=== PATIENT | male | born 1940 | race Caucasian/White ===

== ENCOUNTER 2016-12-21 15:07 | Emergency (ER) | payer OTHER ==
[2016-12-21 15:22] VITALS: RESP 16; TEMP 98.1
--- NOTE | 2016-12-21 16:12 | EDPHY ---
H & P Time Seen by Provider: 12/21/16 16:04 HPI/ROS: CHIEF COMPLAINT: Hematuria, rib pain HISTORY OF PRESENT ILLNESS: 76-year-old male presents with a chief complaint of blood in urine. Onset of hematuria 3 days ago, constant since then. 2 weeks ago he had a mechanical fall while hiking down an icy slope. He landed onto his right side and has ongoing right-sided rib and flank pain. He was seen at urgent care earlier today, and was directed to present to the emergency department for further evaluation. No abdominal pain, fever, vomiting, or other associated symptoms. REVIEW OF SYSTEMS: Constitutional: No fever, no chills Eyes: No visual changes ENT: No sore throat Respiratory: No cough, no shortness of breath Cardiac: No chest pain Gastrointestinal: No nausea, no vomiting, no abdominal pain Genitourinary: no dysuria Musculoskeletal: No leg pain or swelling Skin: No rash Neurological: No headache, no numbness, no weakness Psychiatric: No depression Past Medical/Surgical History: Denies Social History: at bedside Smoking Status: Never smoked Physical Exam: General Appearance: Alert, pleasant Eyes: Pupils equal and round, no conjunctival pallor or injection ENT, Mouth: Mucous membranes moist Neck: Normal inspection Respiratory: Lungs are clear to auscultation Cardiovascular: Regular rate and rhythm Gastrointestinal: Abdomen is soft and nontender Back: normal inspection, tender over the right lower ribs, no midline tenderness Neurological: A&O, nonfocal, normal gait Skin: Warm and dry, no rash Extremities: Nontender, no pedal edema Psychiatric: Mood and affect normal Constitutional: Initial Vital Signs Temperature (C) 36.7 C 12/21/16 15:20 Heart Rate 78 12/21/16 15:20 Respiratory Rate 16 12/21/16 15:20 Blood Pressure 156/80 H 12/21/16 15:20 O2 Sat (%) 94 12/21/16 15:20 O2 Delivery Mode Room Air Allergies/Adverse Reactions: No Known Allergies Allergy (Unverified 12/21/16 15:22) Home Medications: Medication Instructions Recorded NK [No Known Home Meds] 12/21/16 Medical Decision Making - Diagnostics Imaging: Discussed imaging studies w/ home sales consultant Radiologist ED Course/Re-evaluation: 76 year old presents with hematuria and ongoing rib pain after a recent fall. Unclear if the hematuria is related to the fall. Given the persistent right rib /flank pain, CT scan is indicated to rule out renal trauma. 17:[address] Zepeda, radiologist. CT shows posterior left bladder mass. Enlarged prostate gland. Right 8th rib subacute fracture. CT results discussed with the patient and his . Hematuria is most likely secondary to the bladder mass. No evidence of severe hemorrhage and no indication for admission. Plan to discharge home in good condition. The patient will follow up with urology this week. Return precautions discussed. The patient is comfortable with this plan. Differential Diagnosis: Differential diagnosis includes but is not limited to renal trauma, kidney stone , urinary tract infection, coagulopathy. - Data Points Laboratory Results: Laboratory Results 12/21/16 16:45 12/21/16 16:45 Medications Given: Discontinued Medications Sodium Chloride (Ns) 1,000 mls @ 0 mls/hr IV EDNOW ONE; Wide Open PRN Reason: Protocol Stop: 12/21/16 16:24 Last Admin: 12/21/16 16:42 Dose: 1,000 mls Departure - Departure Disposition: Home, Routine, Self-Care Clinical Impression: Bladder mass Hematuria Qualifiers: Hematuria type: gross Qualified Code(s): R31.0 - Gross hematuria Condition: Good Instructions: Hematuria (ED) Additional Instructions: 1. Follow up with urology this week. We have referred you to our urologist sales contracts analyst. Call tomorrow to schedule an appointment. 2. Return to the emergency department for inability to urinate, worsening bleeding, abdominal pain, or any concerns. Referrals: GURDEEP MCKENZIE [Other] - As per Instructions Frederic Contreras MD [Medical Doctor] - As per Instructions Report Scribed for: Bianca Moffett Report Scribed by: Ana Maria Jo Date of Report: 12/21/16 Time of Report: 16:12 Physician Review and Approval Statement: 12/21/16 16:11 Portions of this note were transcribed by a medical review coordinator. I personally performed a history, physical exam, medical decision making, and confirmed accuracy of information the transcribed note.
[2016-12-21] MEDS ORDERED: NS 1,000 ML IV ONE (16:23)
[2016-12-21 16:32] LABS: LEUKOCYTE ESTERASE,URINE NEGATIVE (NEGATIVE); NITRITE,URINE NEGATIVE (NEGATIVE)
[2016-12-21 16:33] LABS: COLOR RED
[2016-12-21 16:34] LABS: RBC,URINE 50-182 /hpf (0-3)
[2016-12-21 16:35] LABS: WBC,URINE 0-1 /hpf (0-3)
[2016-12-21 17:04] LABS: % IMMATURE GRANULYOCYTES 0.3 % (0.0-1.1); ABSOLUTE IMMATURE GRANULOCYTES 0.02 10^3/uL (0.00-0.10); ADD DIFF? NO; ADD MORPH? NO; ADD SCAN? NO; ATYPICAL LYMPHOCYTE FLAG 10 (0-99); FRAGMENT RBC FLAG 0 (0-99); HEMATOCRIT 47.3 % (40.0-51.0); LEFT SHIFT FLG 0 (0-99); LIPEMIA HEMOLYSIS FLAG 90 (0-99); MEAN CELL HEMOGLOBIN 28.8 pg (27.9-34.1); MEAN CELL HEMOGLOBIN CONCENTR. 33.8 g/dL (32.4-36.7); MEAN CELL VOLUME 85.1 fL (81.5-99.8); MEAN PLATELET VOLUME 9.6 fL (8.7-11.7); PLATELET CLUMPS FLAG 0 (0-99); PLATELET COUNT 217 10^3/uL (150-400); RED BLOOD CELL COUNT 5.56 10^6/uL (4.40-6.38); RED CELL DISTRIBUTION WIDTH 13.5 % (11.5-15.2)
[2016-12-21 17:05] LABS: ANION GAP 12 mEq/L (8-16); CALCIUM 9.7 mg/dL (8.5-10.4); CARBON DIOXIDE 22 mEq/l (22-31); CHLORIDE 106 mEq/L (97-110); GLOMERULAR FILTRATION RATE > 60; GLUCOSE 93 mg/dL (70-100); POTASSIUM 4.2 mEq/L (3.5-5.2); SODIUM 140 mEq/L (134-144)
[2016-12-21] MEDS ORDERED: IOPAMIDOL (ISOVUE-300) 100 ML BTL ONE (17:18)
[2016-12-21 18:31] VITALS: BP 142/81; PULSE 74; O2SAT 95
== END 2016-12-21 18:31 | disposition home or self-care (01) ==
DX: N32.9 Bladder disorder, unspecified (principal); E86.9 Volume depletion, unspecified
CPT/HCPCS: 74177; 96360; 99285; Q9967

== ENCOUNTER 2018-06-16 18:21 | Inpatient (IN) | payer OTHER ==
--- NOTE | 2018-06-16 19:03 | EDPHY ---
HPI/HX/ROS/PE/MDM Narrative: CHIEF COMPLAINT: "Really dehydrated and weak" HISTORY OF PRESENT ILLNESS: The patient is an 78 y/o male arriving with his family members complaining of dehydration, weakness, and fever for the last 4 days after flying back from [place] on Wednesday. He describes a "light, irritating cough," dysuria, and a fever as high as 102F this morning. His describes him as delirious and took him to his PCP today, who referred him onto the ED. He has not taken any antipyretics. His says, "we've been doing garlic to try to get him to feel well." He also mentions he's had diarrhea for perhaps a year that his doctor does not believe is infectious. He has a history of an "inflamed prostate" that he treats with supplements. No sore throat, chills, chest pain, back pain, shortness of breath, palpitations , abdominal pain, vomiting, headache, lightheadedness. REVIEW OF SYSTEMS: Aside from elements discussed in the HPI, a comprehensive 10-point review of systems was reviewed and is negative. PAST MEDICAL HISTORY: "Inflamed prostate" - herbal supplements SOCIAL HISTORY: Family at bedside. Lives in [place]. PCP: [facility] VITAL SIGNS: Reviewed by me. SpO2 87% on room air, 38.9C. GENERAL: Elderly, thin, resting comfortably in no respiratory distress. HEENT: Atraumatic. Eyes: No icterus, no injection. Left eye enucleated. Mouth: dry mucous membranes. No erythema or lesions. Neck: supple with no adenopathy. LUNGS: Clear to auscultation bilaterally, no wheezes, rhonchi or rales. CARDIAC: Regular rate and rhythm, no rubs, murmurs or gallops. ABDOMEN: Soft, nontender, nondistended, bowel sounds normal. BACK: No CVA tenderness. EXTREMITIES: No trauma. No edema. Range of motion is normal throughout. NEURO: Alert and oriented, grossly nonfocal. SKIN: Hot and dry, no rash. PSYCHIATRIC: Normal mentation, no agitation. Portions of this note were transcribed by a medical parasitologist. I personally performed a history, physical exam, medical decision making, and confirmed accuracy of information the transcribed note. ED Course: This is an ill-appearing 78 y/o male who presents with a 4-day history of weakness, dehydration, cough, and fever following a flight home from [place] on Wednesday. He is hypoxemic and febrile on my assessment. Plan for IV, sepsis labs, UA, EKG, chest x-ray, and symptom management. 1L IV NS, 1000mg PO Tylenol ordered. The 12 lead EKG was interpreted by myself. Sinus mechanism rate 74. See hard copy and/or "tracemaster" electronic copy for interpretation. Chest x-ray: wedged-shaped left upper lobe infiltrate. Suspicion for aspiration pneumonia was raised. 500mg IV azithromycin and 1gm IV Ceftriaxone ordered. D-dimer ordered due to concern for PE given wedge-shaped infiltrate and hypoxemia following travel. Lactate and WBC are normal. 2024: Spoke with hospitalist service. Dr. Blanca accepts admission. Discussed possibility of aspiration. Dr. Mariano will consider broadening patient's antibiotic regiment after his evaluation. D-dimer is elevated. Chest CTA: The negative for pulmonary embolism. Please see the report with respect to thyroid findings. Sepsis Evaluation Note: The patient presents to the ED with potential infection identified as pneumonia. The patient did have evidence of sepsis with temperature greater than 38 degree Celsius, and hypoxemia. Patient did not have evidence of severe sepsis (lactic acid greater than 2, INR greater than 1.5, platelets less than 100,000, bilirubin greater than 2, creatinine greater than 2, systolic blood pressure less than 90 or MAP less than 65, or the need for intubation or positive pressure ventilation). MDM: Differential diagnosis for the patient's cough and fever was considered including but not limited to viral versus bacterial bronchitis, influenza, aspiration pneumonia, community-acquired pneumonia, pneumonia, upper respiratory infection, cardiac causes, bronchospasm, PE. - Data Points Imaging Results: Imaging Impressions Chest X-Ray 06/16/18 18:56 Impression: Diffuse peribronchial thickening with interim development of an anterior left upper lobe infiltrate and a tiny left pleural effusion. Clinical correlation and follow-up to assure resolution are recommended. CT Chest: Impression: 1. There is no CT evidence of pulmonary artery thromboemboli. 2. Left upper lobe interstitial/alveolar infiltrate. Clinical correlation and follow-up to assure resolution recommended. Could this represent an aspiration pneumonia? 3. Small left pleural effusion with bibasilar subsegmental atelectasis. 4. There is a nonspecific inferolateral right middle lobe 6 mm nodule with pleural attachment. Consider follow-up CT reevaluation in 6-12 months. 5. Asymmetric heterogeneous enlargement of the right lobe of the thyroid gland. Consider correlation with serum thyroid function tests and sonography, as clinically directed. 6. Sequela of old granulomatous disease. 7. Minimal LAD coronary artery atherosclerotic calcification. Findings were discussed with Nirmala Eagle MD at 22:05, on 06/16/2018. Dictated By: Umair Elam MD Imaging: Discussed imaging studies w/ fisher scallop Radiologist, I viewed and interpreted images myself Laboratory Results: Laboratory Results 06/16/18 19:05 06/16/18 19:05 06/16/18 06/16/18 06/16/18 19:36 19:31 19:17 WBC RBC Hgb Hct MCV MCH MCHC RDW Plt Count MPV Neut % (Auto) Lymph % (Auto) [place] % (Auto) Eos % (Auto) Baso % (Auto) Nucleat RBC Rel Count Absolute Neuts (auto) Absolute Lymphs (auto) Absolute Monos (auto) Absolute Eos (auto) Absolute Basos (auto) Absolute Nucleated RBC Immature Gran % Immature Gran # PT INR APTT D-Dimer VBG Lactic Acid 1.8 mmol/L mmol/L (0.7-2.1) Sodium Potassium Chloride Carbon Dioxide Anion Gap BUN Creatinine Estimated GFR Glucose Calcium Total Bilirubin POC Troponin I 0.02 ng/mL ng/mL (0.00-0.08) Procalcitonin Nasal Influenza A PCR NEGATIVE FOR FLU A (NEGATIVE) Nasal Influenza B PCR NEGATIVE FOR FLU B (NEGATIVE) 06/16/18 06/16/18 06/16/18 19:05 19:05 19:05 WBC 8.10 10^3/uL 10^3/uL (3.80-9.50) RBC 4.96 10^6/uL 10^6/uL (4.40-6.38) Hgb 14.0 g/dL g/dL (13.7-17.5) Hct 40.8 % % (40.0-51.0) MCV 82.3 fL fL (81.5-99.8) MCH 28.2 pg pg (27.9-34.1) MCHC 34.3 g/dL g/dL (32.4-36.7) RDW 12.9 % % (11.5-15.2) Plt Count 169 10^3/uL 10^3/uL (150-400) MPV 10.2 fL fL (8.7-11.7) Neut % (Auto) 79.0 % H % (39.3-74.2) Lymph % (Auto) 8.8 % L % (15.0-45.0) [place] % (Auto) 11.7 % % (4.5-13.0) Eos % (Auto) 0.0 % L % (0.6-7.6) Baso % (Auto) 0.1 % L % (0.3-1.7) Nucleat RBC Rel Count 0.0 % % (0.0-0.2) Absolute Neuts (auto) 6.40 10^3/uL 10^3/uL (1.70-6.50) Absolute Lymphs (auto) 0.71 10^3/uL L 10^3/uL (1.00-3.00) Absolute Monos (auto) 0.95 10^3/uL H 10^3/uL (0.30-0.80) Absolute Eos (auto) 0.00 10^3/uL L 10^3/uL (0.03-0.40) Absolute Basos (auto) 0.01 10^3/uL L 10^3/uL (0.02-0.10) Absolute Nucleated RBC 0.00 10^3/uL 10^3/uL (0-0.01) Immature Gran % 0.4 % % (0.0-1.1) Immature Gran # 0.03 10^3/uL 10^3/uL (0.00-0.10) PT 15.0 SEC SEC (12.0-15.0) INR 1.16 (0.83-1.16) APTT 36.3 SEC SEC (23.0-38.0) D-Dimer 1.24 ug/mLFEU H ug/mLFEU (0.00-0.50) VBG Lactic Acid Sodium Potassium Chloride Carbon Dioxide Anion Gap BUN Creatinine Estimated GFR Glucose Calcium Total Bilirubin POC Troponin I Procalcitonin 1.39 ng/mL H ng/mL (0.02-0.10) Nasal Influenza A PCR Nasal Influenza B PCR 06/16/18 19:05 WBC RBC Hgb Hct MCV MCH MCHC RDW Plt Count MPV Neut % (Auto) Lymph % (Auto) [place] % (Auto) Eos % (Auto) Baso % (Auto) Nucleat RBC Rel Count Absolute Neuts (auto) Absolute Lymphs (auto) Absolute Monos (auto) Absolute Eos (auto) Absolute Basos (auto) Absolute Nucleated RBC Immature Gran % Immature Gran # PT INR APTT D-Dimer VBG Lactic Acid Sodium 131 mEq/L L mEq/L (135-145) Potassium 4.0 mEq/L mEq/L (3.5-5.2) Chloride 101 mEq/L mEq/L (97-110) Carbon Dioxide 22 mEq/l mEq/l (22-31) Anion Gap 8 mEq/L mEq/L (6-14) BUN 28 mg/dL H mg/dL (7-23) Creatinine 1.1 mg/dL mg/dL (0.7-1.3) Estimated GFR > 60 Glucose 143 mg/dL H mg/dL (70-100) Calcium 8.5 mg/dL mg/dL (8.5-10.4) Total Bilirubin 0.7 mg/dL mg/dL (0.1-1.4) POC Troponin I Procalcitonin Nasal Influenza A PCR Nasal Influenza B PCR Medications Given: Discontinued Medications Acetaminophen (Tylenol) 1,000 mg PO EDNOW ONE Stop: 06/16/18 19:11 Last Admin: 06/16/18 19:25 Dose: 1,000 mg Sodium Chloride (Ns) 1,000 mls @ 0 mls/hr IV ONCE ONE PRN Reason: Wide Open Stop: 06/16/18 19:22 Last Admin: 06/16/18 19:24 Dose: 1,000 mls Azithromycin 500 mg/ Sodium (Chloride) 255 mls @ 255 mls/hr IV EDNOW ONE PRN Reason: Protocol Stop: 06/16/18 20:54 Last Admin: 06/16/18 20:47 Dose: 255 mls Ceftriaxone Sodium/Dextrose (Rocephin 1 Gm (Premix)) 50 mls @ 100 mls/hr IV EDNOW ONE PRN Reason: Protocol Stop: 06/16/18 20:21 Last Admin: 06/16/18 20:30 Dose: 50 mls Sodium Chloride (Ns) 1,000 mls @ 0 mls/hr IV ONCE ONE PRN Reason: Wide Open Stop: 06/16/18 20:21 Last Admin: 06/16/18 20:31 Dose: 1,000 mls Point of Care Test Results: Chemistry 06/16/18 19:17 POC Troponin I 0.02 ng/mL ng/mL (0.00-0.08) General Time Seen by Provider: 06/16/18 18:43 Initial Vital Signs: Initial Vital Signs Temperature (C) 37.3 C 06/16/18 18:25 Heart Rate 92 06/16/18 18:25 Respiratory Rate 18 06/16/18 18:25 Blood Pressure 136/78 H 06/16/18 18:25 O2 Sat (%) 91 L 06/16/18 18:25 O2 Delivery Mode Nasal Cannula O2 (L/minute) 3 Allergies/Adverse Reactions: No Known Allergies Allergy (Verified 06/16/18 18:24) Home Medications: Medication Instructions Recorded Albuterol [Proventil Inhaler HFA 1 - 2 puffs IH Q4H #1 mdi 06/18/18 (*)] Amoxicillin/Clavulanate Pot 875 mg PO BID #14 tab 06/18/18 [Augmentin 875 MG TAB (*)] Departure - Departure Disposition: [facility] Inpatient Acute Clinical Impression: Hypoxemia, Dehydration Pneumonia Qualifiers: Pneumonia type: due to unspecified organism Laterality: right Lung location: upper lobe of lung Qualified Code(s): J18.1 - Lobar pneumonia, unspecified organism Condition: Good Report Scribed for: Nirmala Eagle Report Scribed by: Hillary Hamilton Date of Report: 06/16/18 Time of Report: 19:15
[2018-06-16] MEDS ORDERED: ACETAMINOPHEN 500 MG TAB PO ONE (19:10)
[2018-06-16 19:18] LABS: PLATELET COUNT 169 10^3/uL (150-400)
[2018-06-16] MEDS ORDERED: NS 1,000 ML IV ONE ×2 (19:21→20:20)
[2018-06-16 19:26] LABS: INR 1.16 (0.83-1.16)
[2018-06-16] MEDS ORDERED: AZITHROMYCIN IV 500 MG in NS 250 ML IV ONE (19:55)
[2018-06-16] MEDS ORDERED: PROTOCOL POTASSIUM 1 DOSE MISC PRN (20:52)
[2018-06-16] MEDS ORDERED: ONDANSETRON DISINTEGRATING 4 MG TAB PO PRN (20:52)
[2018-06-16] MEDS ORDERED: PROTOCOL K PHOSPHATE 1 DOSE IV PRN (20:52)
[2018-06-16] MEDS ORDERED: ACETAMINOPHEN 325 MG TAB PO PRN (20:52)
[2018-06-16] MEDS ORDERED: PROTOCOL MAGNESIUM 1 DOSE IV PRN (20:52)
[2018-06-16] MEDS ORDERED: ONDANSETRON 4 MG/2 ML VIAL IVP PRN (20:52)
[2018-06-16] MEDS ORDERED: IOPAMIDOL (ISOVUE 370) 100 ML BTL IV ONE (21:10)
--- NOTE | 2018-06-16 21:12 | PDGENHP ---
History and Physical - Chief Complaint weakness - History of Present Illness Frederic Rae is a 78-year-old male with past medical history of BPH who presented to the emergency room with complaints of progressive weakness. He just got back from a trip to [place] with his family on Wednesday and started feeling ill at that time. He said that he has had progressive fatigue, weakness , shortness of breath and general lassitude. He does have a cough which is nonproductive. He has had subjective fevers and chills. He did not endorse any chest pain however. Nobody else in his family is sick and he has no known recent sick contacts. He denied any new onset lower extremity edema nausea, vomiting, diarrhea, abdominal pain, dysuria or any other symptoms. History Information - Allergies/Home Medication List Allergies/Adverse Reactions: No Known Allergies Allergy (Verified 06/16/18 18:24) Home Medications: NK [No Known Home Meds] 06/16/18 [Last Taken Unknown] I have personally reviewed and updated: family history, medical history, social history, surgical history - Past Medical History Additional medical history: BPH - Surgical History Additional surgical history: Left eye enucleation - Family History Positive for: non-pertinent - Social History Smoking Status: Never smoked Alcohol Use: Occasionally Drug Use: None Review of Systems Review of Systems: ROS: 10pt was reviewed & negative except for what was stated in HPI & below Physical Exam Physical Exam: Temp Pulse Resp BP Pulse Ox 36.9 C 71 16 130/73 H 90 L 06/16/18 20:50 06/16/18 20:50 06/16/18 20:50 06/16/18 20:50 06/16/18 20:50 O2 (L/minute) 2.5 Constitutional: no apparent distress, appears nourished, not in pain Eyes: PERRL, anicteric sclera, EOMI Ears, Nose, Mouth, Throat: moist mucous membranes, hearing normal, ears appear normal, no oral mucosal ulcers Cardiovascular: regular rate and rhythym, no murmur, rub, or gallop, No edema Respiratory: no respiratory distress, no rales or rhonchi, clear to auscultation Gastrointestinal: normoactive bowel sounds, soft, non-tender abdomen, no palpable masses Genitourinary: no bladder fullness, no bladder tenderness Skin: warm, normal color, no rashes or abrasions, no fluctuance, no induration, No mottled Musculoskeletal: full muscle strength, no muscle tenderness, normal joint ROM, no joint effusions Psychiatric: interacting appropriately, not anxious, not encephalopathic, thought process linear Lymph, Heme, Immunologic: no cervical LAD, no supraclavicular LAD Lab Data & Imaging Review 06/16/18 19:05 06/16/18 19:05 WBC 8.10 10^3/uL (3.80-9.50) 06/16/18 19:05 RBC 4.96 10^6/uL (4.40-6.38) 06/16/18 19:05 Hgb 14.0 g/dL (13.7-17.5) 06/16/18 19:05 Hct 40.8 % (40.0-51.0) 06/16/18 19:05 MCV 82.3 fL (81.5-99.8) 06/16/18 19:05 MCH 28.2 pg (27.9-34.1) 06/16/18 19:05 MCHC 34.3 g/dL (32.4-36.7) 06/16/18 19:05 RDW 12.9 % (11.5-15.2) 06/16/18 19:05 Plt Count 169 10^3/uL (150-400) 06/16/18 19:05 MPV 10.2 fL (8.7-11.7) 06/16/18 19:05 Neut % (Auto) 79.0 % (39.3-74.2) H 06/16/18 19:05 Lymph % (Auto) 8.8 % (15.0-45.0) L 06/16/18 19:05 [place] % (Auto) 11.7 % (4.5-13.0) 06/16/18 19:05 Eos % (Auto) 0.0 % (0.6-7.6) L 06/16/18 19:05 Baso % (Auto) 0.1 % (0.3-1.7) L 06/16/18 19:05 Nucleat RBC Rel Count 0.0 % (0.0-0.2) 06/16/18 19:05 Absolute Neuts (auto) 6.40 10^3/uL (1.70-6.50) 06/16/18 19:05 Absolute Lymphs (auto) 0.71 10^3/uL (1.00-3.00) L 06/16/18 19:05 Absolute Monos (auto) 0.95 10^3/uL (0.30-0.80) H 06/16/18 19:05 Absolute Eos (auto) 0.00 10^3/uL (0.03-0.40) L 06/16/18 19:05 Absolute Basos (auto) 0.01 10^3/uL (0.02-0.10) L 06/16/18 19:05 Absolute Nucleated RBC 0.00 10^3/uL (0-0.01) 06/16/18 19:05 Immature Gran % 0.4 % (0.0-1.1) 06/16/18 19:05 Immature Gran # 0.03 10^3/uL (0.00-0.10) 06/16/18 19:05 PT 15.0 SEC (12.0-15.0) 06/16/18 19:05 INR 1.16 (0.83-1.16) 06/16/18 19:05 APTT 36.3 SEC (23.0-38.0) 06/16/18 19:05 D-Dimer 1.24 ug/mLFEU (0.00-0.50) H 06/16/18 19:05 VBG Lactic Acid 1.8 mmol/L (0.7-2.1) 06/16/18 19:36 Sodium 131 mEq/L (135-145) L 06/16/18 19:05 Potassium 4.0 mEq/L (3.5-5.2) 06/16/18 19:05 Chloride 101 mEq/L (97-110) 06/16/18 19:05 Carbon Dioxide 22 mEq/l (22-31) 06/16/18 19:05 Anion Gap 8 mEq/L (6-14) 06/16/18 19:05 BUN 28 mg/dL (7-23) H 06/16/18 19:05 Creatinine 1.1 mg/dL (0.7-1.3) 06/16/18 19:05 Estimated GFR > 60 01/10/19 19:05 Glucose 143 mg/dL (70-100) H 06/16/18 19:05 Calcium 8.5 mg/dL (8.5-10.4) 06/16/18 19:05 Total Bilirubin 0.7 mg/dL (0.1-1.4) 06/16/18 19:05 POC Troponin I 0.02 ng/mL (0.00-0.08) 06/16/18 19:17 Nasal Influenza A PCR NEGATIVE FOR FLU A (NEGATIVE) 06/16/18 19:31 Nasal Influenza B PCR NEGATIVE FOR FLU B (NEGATIVE) 06/16/18 19:31 Visualized and Interpreted Chest x-ray results: Yes Chest X-Ray results: infiltrate (Left upper lobe infiltrate) Assessment & Plan Assessment: Acute hypoxemic respiratory failure- differential includes bacterial/viral pneumonia versus PE versus CHF versus other. Chest x-ray reviewed by myself and shows left upper lobe infiltrate. I discussed the case with the emergency room physician. Given patient's recent travel history he is higher risk for PE. D- dimer elevated. No leukocytosis but does have a left shift. patient did have a fever in the emergency room. Flu swab negative -rule out pulmonary embolism with CTA -community-acquired pneumonia coverage with Rocephin and Zithromax -oxygen p.r.n. -monitor blood cultures -respiratory panel pending -ECG Community acquired Pneumonia- I reviewed the chest x-ray which shows a left upper lobe pneumonia. Patient is also hypoxic on room air. Has no leukocytosis but increased bands. Clinically he endorses a cough and had a fever in the emergency room. Flu swab negative. -Rocephin and Zithromax -respiratory panel pending -blood cultures drawn Hyponatremia- patient appears hypovolemic so likely hypovolemic hyponatremia. Given IV normal saline in the emergency room. Will repeat serum sodium in the morning. BPH- patient takes saw [facility] herbs at home. Currently they are not interested in trying Flomax or finasteride. Monitor Prophylaxis-SCDs and Lovenox Fluids-IV saline Electrolytes-hyponatremia. On normal saline Nutrition- regular diet Cor-full code Dispo-observation for acute hypoxemic respiratory failure and hyponatremia
[2018-06-17] MEDS: NS 1,000 ML IV SCH ×2 (00:31→16:17)
[2018-06-17 05:57] LABS: PLATELET COUNT 134 10^3/uL (150-400)
[2018-06-17] MEDS ORDERED: AZITHROMYCIN IV 500 MG in NS 250 ML IV SCH (09:00)
[2018-06-17] MEDS: ENOXAPARIN 40 MG/0.4 ML SYR SC SCH (09:14)
--- NOTE | 2018-06-17 12:08 | HOSPPROG ---
Hospitalist Progress Note Assessment/Plan: Acute hypoxemic respiratory failure- -Chest x-ray reviewed by myself and shows left upper lobe infiltrate. -No e/o P.E. -respiratory panel negative JACKELINE Pneumonia likely Aspiration Pneumonia vs Community acquired Pneumonia -Continue Rocephin -Start Flagyl -He likely does not have atypical organism, will stop Azithromycin Hyponatremia -due to volume deficit. -Resolved BPH- patient takes saw [facility] herbs at home. Currently they are not interested in trying Flomax or finasteride. Monitor Plan: Abx Prophylaxis-SCDs and Lovenox Fluids-cont IVF Nutrition- regular diet Cor-full code change to inpatient PT Subjective: still on supplemental O2. no cp. no leg swelling Objective: Vital Signs Temp Pulse Resp BP Pulse Ox 36.5 C 64 18 102/60 95 06/17/18 08:00 06/17/18 08:00 06/17/18 08:00 06/17/18 08:00 06/17/18 08:00 Laboratory Results 06/17/18 05:35 06/17/18 05:35 06/16/18 06/17/18 06/18/18 05:59 05:59 05:59 Intake Total 2634 Output Total 200 Balance 2434 PT 15.0 SEC (12.0-15.0) 06/16/18 19:05 INR 1.16 (0.83-1.16) 06/16/18 19:05 - Physical Exam Constitutional: no apparent distress Eyes: PERRL Ears, Nose, Mouth, Throat: moist mucous membranes Cardiovascular: regular rate and rhythym, No edema Respiratory: reduced air movement Gastrointestinal: normoactive bowel sounds, soft, non-tender abdomen Skin: warm Neurologic: AAOx3 Psychiatric: interacting appropriately Lymph, Heme, Immunologic: No petechiae ICD10 Worksheet Patient Problems: Problems Problem Status Onset Dehydration Acute Hypoxemia Acute Pneumonia Acute Bladder mass Acute Hematuria Acute
--- NOTE | 2018-06-17 14:16 | PDMN ---
Medical Necessity Medical [place] [facility] [place]: 78 yr old with recent trip to [place] presents with progressive weakness , fatigue, SOB, - acute hypoxemic resp failure: CXR show JACKELINE infiltrate, cPNA vs. aspiration PNA, pt cont. to receive O2 - 95% on 3 L. status changed to INPT 06/17/18 for ongoing med nec care > 2MN - pt cont. with IVF, IV abx- Rocephin , will add IV flagyl ,
--- NOTE | 2018-06-17 16:16 | ASMTCMCOM ---
CM Note CM Note Notes: Spoke with pt's RN and conducted chart review. Pt admitted for community acquired pneumonia and dehydration. Pt lives with independently and they recently returned from trip to [place]. Pt declined OT, PT eval also pending. Anticipate pt will discharge independently, though RN reports he is unsteady. CM to follow. D/C Plan: TBD pending PT eval Date Signed: 06/17/2018 04:15 PM Electronically Signed By:Loly Mallory
[2018-06-18] MEDS: NS 1,000 ML IV SCH (05:01)
[2018-06-18 06:02] LABS: PLATELET COUNT 148 10^3/uL (150-400)
[2018-06-18] MEDS: ENOXAPARIN 40 MG/0.4 ML SYR SC SCH (09:22)
[2018-06-18] MEDS ORDERED: POTASSIUM CL 10 MEQ TAB PO ONE (10:20)
[2018-06-18 12:35] VITALS: BP 117/67
--- NOTE | 2018-06-18 12:49 | ASMTLACE ---
LACE Length of stay for Answers: Less than 1 day current admission Acuity / Level of Answers: Yes Care: Did the patient have an inpatient admission? Comorbidities - select Answers: Opioid dependence all that apply / Chronic pain Other Notes: BPH # of Emergency department Answers: 1-2 visits in the last 6 months Score: 9 Date Signed: 06/18/2018 12:48 PM Electronically Signed By:Ashley Soliz RN
--- NOTE | 2018-06-19 04:00 | GDS ---
DISCHARGE DIAGNOSIS: Community-acquired pneumonia. HISTORY OF PRESENT ILLNESS: The patient is a pleasant 78-year-old gentleman with no major past medic al history who recently returned from a trip to [place] when he started to feel ill. He complained of a cough, which was nonproductive, associated with fatigue, weakness, and shortness of breath. He pr esented to the [facility] on 06/16/2018. He had a CT scan of his chest performed, wh ich did not show any evidence of a pulmonary embolism. It did, however, show a left upper lobe infil trate, and he was started on treatment for pneumonia. Fortunately, he improved rather rapidly, and w as able to wean off oxygen and was felt stable for discharge on 06/18/2018. HOSPITAL COURSE BY PROBLEM: Acute hypoxic respiratory failure-resolved. Patient was able to wean of f supplemental oxygen. Pneumonia-no organisms were detected on respiratory pathogen panel. Blood cultures are negative to d ate. He did respond with ceftriaxone, so I am recommending 1 additional week of Augmentin. There wa s some concern possibly for aspiration component, and he did receive a dose of Flagyl here in the hos pital. The patient did not report any difficulty with swallowing or emesis. Hyponatremia, improved with IV fluids. Pulmonary nodule on his CT scan of the chest done in the emergency room, a nonspecific inferior later al right middle lobe 6 mm nodule was seen. I reviewed this with the patient and his as well and recommended that they schedule a followup visit with their primary provider to consider a repeat CT scan in 6-12 months as recommended on the report. They both seemed agreeable to this plan. Right thyroid enlargement-asymmetric heterogeneous enlargement of the right lobe of the thyroid gland was noted as well on the CT scan. I recommend a followup visit with his primary provider to review any recent thyroid testing and potentially consider ordering if not done recently. BPH-patient takes aukz-vrb-rygytol supplements. DISPOSITION: Patient appears stable to return home independently where he lives with his and so n. DISCHARGE PHYSICAL EXAMINATION: VITAL SIGNS: On day of discharge: Temperature 36.9, blood pressure 96/53, heart rate 54, respirations 18, saturating 93% on 2 L. GENERAL: Patient appears comfortable . He is awake, alert, sitting in chair at the bedside. No acute distress. HEART: Regular rate and rhythm. No murmurs. LUNGS: Clear to auscultation. No crackles appreciated at the left upper lobe . ABDOMEN: Soft, nontender, nondistended. : No Powell catheter in place. EXTREMITIES: No signi ficant pitting edema. DATA REVIEWED: Notable studies: Negative respiratory pathogen panel including negative flu testing. White blood cell count 6, hemoglobin 13, platelets 148. Sodium 136, potassium 3.8, chloride 110, bic arb 20, BUN is 6, creatinine 0.9, glucose of 97. DISCHARGE MEDICATIONS: 1. Augmentin 875/125 one tablet twice a day for 7 additional days. 2. Albuterol inhaler 1-2 puffs every 4 hours as needed for cough or wheezing. DISCHARGE INSTRUCTIONS: I recommend a followup visit with his primary provider. He states he has a visit scheduled for this coming Wednesday. Thirty-five minutes of time dedicated to discharge efforts. /[id number]/MODL
== END 2018-06-18 12:30 | disposition home or self-care (01) | DRG 193 ==
LOC: INTOOBSV 20:26 → F1N 21:39 → OBSVTOIN 06-17 11:59
PROVIDERS: ADMIT Internal Medicine; ATTEND Internal Medicine
DX: J18.8 Other pneumonia, unspecified organism (principal); J96.01 Acute respiratory failure with hypoxia; E87.1 Hypo-osmolality and hyponatremia; N40.0 Benign prostatic hyperplasia without lower urinary tract symptoms; R91.8 Other nonspecific abnormal finding of lung field; E04.9 Nontoxic goiter, unspecified; E86.0 Dehydration
CPT/HCPCS: 84484-ER; 96365; G0378; J0456; J0696; J1650; Q9967

== ENCOUNTER 2018-08-06 11:33 | Emergency (ER) | payer OTHER | END 2018-08-06 13:23 | disposition home or self-care (01) ==